=== PATIENT | female | born 1990 | race Caucasian/White ===

== ENCOUNTER → 2016-11-22 | Outpatient (REF) ==
[~2016-11-22] MED LIST: ABILIFY 10MG TA10 MG PO; ALBUTEROL0.83 MG/ML IH; AMBIEN 10MG10 MG PO; AMOXICILLIN 50500 MG PO; ARTANE 2MG2 MG PO; ATIVAN 0.50.5 MG/TAB PO; BACTRIM DS 8001 TAB PO; BIRTH CONTROL PILLS; BUSPAR10 MG PO; CEFTIN 250250 MG/TAB PO; CELEBREX50 MG PO; CELEXA10 MG PO; CEPHALEXIN500 M1 PO; CIPRO 500MG TA500 MG PO; CLARITIN 1010 MG/TAB PO; CLEOCIN HC150 MG/CAP PO; COLESTID 1GM1 G PO; DESYREL; DOXYCYCLINE 10100 MG PO; FLAGYL500 MG PO; FLEXERIL 1010 MG/TAB PO; FLOVENT 110MCG7.9 GM IH; FLOVENT 220MCG7.9 GM IH; FLOVENT DI50 MCG/Act IH; GENTAMICIN OPTHA3 GM OD; GEODON 40MG40 MG PO; GEODON60 MG PO; GEODON80 MG PO; GLUCOPHAGE500 MG/TAB PO; HALDOL 5MG T5 MG/TAB PO; IMITREX 25MG TA25 MG PO; INDERAL 10MG10 MG PO; IPRATROPIUM BROM3 M1 IH; KLONOPIN 0.5MG0.5 MG PO; LITHIUM 30300 MG/CAP PO; LORTAB 5/500 501 TAB PO; MELATONIN5 M1 SL; MINIPRESS 1M1 MG/CAP PO; MOTRIN 800800 MG/TAB PO; NAPROSYN500 MG PO; NO HOME MEDICATIONS; NORCO 325 MG-51 TAB PO; NORCO 325 MG-7.1 TAB PO; OMEGA 31000 MG PO; PERCOCET 325 MG1 TA2 PO; PHENERGAN 25 TA25 MG PO; PREDNISONE10 MG PO; PREDNISONE20 MG PO; PRILOSEC 20MG20 MG PO; PROAIR HFA0.09 MG/AC IH; PROVENTIL0.09 MG/A1 IH; PROZAC 20MG20 MG PO; PROZAC20 MG PO; PULMICORT0.5 MG/2 M PO; SEROQUEL 200MG200 MG PO; SEROQUEL300 MG PO; SEROQUEL400 MG PO; SKELAXIN 800MG800 MG PO; STADOL NASA25 MG/BOT NS; SYNTHROID0.05 MG/TA PO; SYNTHROID0.075 MG/T PO; TESSALON P100 MG/CAP PO; VALTREX 50500 MG/TAB PO; VIIBRYD20 MG PO; VITAMIN D2000 I1 PO; XANAX 0.5MG0.5 MG PO; ZITHROMAX 250M250 MG PO; ZITHROMAX Z PA250 MG PO; ZOCOR 40MG40 MG PO; ZOFRAN 4MG T4 MG/TAB PO; [UNRECOGNIZED DRUG - OTHER] OT
== END ==
LOC: ZLAB.WCH 10:41
DX: Z01.89 Encounter for other specified special examinations (principal)

== ENCOUNTER 2017-04-05 01:41 | Emergency (ER) | payer MEDICAID ==
[~2017-04-05] VITALS: Ht 162.6 cm; Wt 120.5 kg
[~2017-04-05 01:41] MED LIST changes: -CEPHALEXIN500 M1 PO; -GEODON 40MG40 MG PO
[2017-04-05 01:43] VITALS: BP 138/82; TEMP 98.4
[2017-04-05 02:04] LABS: BASO # 0.1 (0.0-0.2); BASO % 0.4 % (0.0-2.0); EOS # 0.3 (0.0-0.7); EOS % 2.2 % (0-4.0); GRAN # 8.3 (1.4-6.5); GRAN % 57.1 % (42.2-75.2); HEMATOCRIT 42.8 % (37.0-47.0); HEMOGLOBIN 14.5 g/dl (12.5-16.0); LYMPH % 34.1 % (20.0-51.0); MEAN CELL VOLUME 89 fl (80.0-100.0); MEAN CORPUSCULAR HEMOGLOBIN 30 pg (27.0-31.0); MEAN CORPUSCULAR HGB CONC 34 g/dl (33.0-37.0); MEAN PLATELET VOLUME 9.4 fl (7.4-10.4); MONO # 0.8 (0.1-0.6); MONO % 5.8 % (1.7-9.3); PLATELET COUNT 323 K/mm3 (130-400); RED BLOOD COUNT 4.79 M/mm3 (4.10-5.30); REDCELL DISTRIBUTION WIDTH-CV 12.7 % (11.5-14.5); WHITE BLOOD COUNT 14.5 K/mm3 (4.8-10.8)
[2017-04-05] MEDS ORDERED: CEPHALEXIN500 M1 PO (02:11)
[2017-04-05 02:13] LABS: ADJUSTED CALCIUM 9.2 mg/dL (8.4-10.2); ALANINE AMINOTRANSFERASE 37 U/L (9-52); ALBUMIN 4.1 gm/dL (3.5-5.0); ALKALINE PHOSPHATASE 95 U/L (50-136); ANION GAP 13 mmol/L (7-16); BILIRUBIN,TOTAL 0.4 mg/dL (0.0-1.0); BLOOD UREA NITROGEN 20 mg/dL (7-17); CALCIUM 9.3 mg/dL (8.4-10.2); CARBON DIOXIDE 22 mmol/L (22-30); CHLORIDE 105 mmol/L (98-107); CREATININE, serum 0.79 mg/dL (0.52-1.25); GLUCOSE 100 mg/dL (74-106); POTASSIUM 4.1 mmol/L (3.4-5.0); SODIUM 139 mmol/L (137-145); TOTAL PROTEIN 7.5 gm/dL (6.4-8.2)
[2017-04-05 02:15] LABS: AMPHETAMINE URINE NEGATIVE; BARBITURATES URINE NEGATIVE; BENZODIAZEPINES URINE NEGATIVE; BUPRENORPHINE URINE NEGATIVE; METHADONE URINE NEGATIVE; OPIATES URINE NEGATIVE; OXYCODONE URINE NEGATIVE; PHENCYCLIDINE URINE NEGATIVE; PROPOXYPHENE URINE NEGATIVE; THC CANNABINOIDS URINE NEGATIVE
[2017-04-05 02:18] LABS: ACETAMINOPHEN < 10 ug/mL (10-30); SALICYLATE < 1.0 mg/dL
[2017-04-05 02:27] LABS: PH 5 (5-8); URINE APPEARANCE Clear; URINE BACTERIA None Seen /hpf; URINE BILIRUBIN Negative (NEGATIVE); URINE BLOOD Negative (NEGATIVE); URINE COLOR Yellow; URINE GLUCOSE Negative (NEGATIVE); URINE KETONE Negative (NEGATIVE); URINE RBC 0-2 /hpf; URINE UROBILINOGEN Negative (NEGATIVE)
[2017-04-05 06:25] VITALS: PULSE 87
== END 2017-04-05 06:26 | disposition home or self-care (01) ==
LOC: COL.ER 01:41
PROVIDERS: Emergency Medicine; Nurse Practitioner
DX: R45.851 Suicidal ideations (principal); F20.9 Schizophrenia, unspecified; F32.9 Major depressive disorder, single episode, unspecified

== ENCOUNTER 2017-04-16 01:11 | Emergency (ER) | payer MEDICAID ==
[~2017-04-16] VITALS: Ht 162.6 cm; Wt 120.5 kg
[~2017-04-16 01:11] MED LIST changes: +CEPHALEXIN500 M1 PO
[2017-04-16 01:14] VITALS: TEMP 98.6
[2017-04-16] MEDS ORDERED: GEODON 40MG40 MG PO (01:17)
[2017-04-16 01:34] LABS: BASO # 0.1 (0.0-0.2); BASO % 0.4 % (0.0-2.0); EOS # 0.1 (0.0-0.7); EOS % 0.6 % (0-4.0); GRAN # 13.2 (1.4-6.5); GRAN % 75.3 % (42.2-75.2); HEMATOCRIT 43.2 % (37.0-47.0); HEMOGLOBIN 14.6 g/dl (12.5-16.0); LYMPH # 3.3 (1.2-3.4); LYMPH % 18.6 % (20.0-51.0); MEAN CELL VOLUME 88 fl (80.0-100.0); MEAN CORPUSCULAR HEMOGLOBIN 30 pg (27.0-31.0); MEAN CORPUSCULAR HGB CONC 34 g/dl (33.0-37.0); MONO # 0.8 (0.1-0.6); MONO % 4.7 % (1.7-9.3); PLATELET COUNT 342 K/mm3 (130-400); RED BLOOD COUNT 4.89 M/mm3 (4.10-5.30); REDCELL DISTRIBUTION WIDTH-CV 12.6 % (11.5-14.5); WHITE BLOOD COUNT 17.5 K/mm3 (4.8-10.8)
[2017-04-16 01:47] LABS: ADJUSTED CALCIUM 8.9 mg/dL (8.4-10.2); ALANINE AMINOTRANSFERASE 21 U/L (9-52); ALBUMIN 4.5 gm/dL (3.5-5.0); ALKALINE PHOSPHATASE 114 U/L (50-136); ANION GAP 12 mmol/L (7-16); BILIRUBIN,TOTAL 0.6 mg/dL (0.0-1.0); BLOOD UREA NITROGEN 16 mg/dL (7-17); CALCIUM 9.3 mg/dL (8.4-10.2); CARBON DIOXIDE 21 mmol/L (22-30); CHLORIDE 104 mmol/L (98-107); CREATININE, serum 0.67 mg/dL (0.52-1.25); GLUCOSE 105 mg/dL (74-106); POTASSIUM 3.6 mmol/L (3.4-5.0); SODIUM 136 mmol/L (137-145)
[2017-04-16 01:53] LABS: ACETAMINOPHEN < 10 ug/mL (10-30); SALICYLATE < 1.0 mg/dL
[2017-04-16 01:54] LABS: AMPHETAMINE URINE NEGATIVE; BARBITURATES URINE NEGATIVE; BENZODIAZEPINES URINE NEGATIVE; BUPRENORPHINE URINE NEGATIVE; METHADONE URINE NEGATIVE; OPIATES URINE NEGATIVE; OXYCODONE URINE NEGATIVE; PHENCYCLIDINE URINE NEGATIVE; PROPOXYPHENE URINE NEGATIVE; THC CANNABINOIDS URINE NEGATIVE
[2017-04-16 05:27] VITALS: BP 117/84; PULSE 94
== END 2017-04-16 04:37 | disposition home or self-care (01) ==
LOC: COL.ER 01:11
PROVIDERS: Physician Assistant
DX: F32.9 Major depressive disorder, single episode, unspecified (principal); R45.851 Suicidal ideations; F43.10 Post-traumatic stress disorder, unspecified

== ENCOUNTER 2017-05-26 20:07 | Emergency (ER) | payer MEDICAID ==
[~2017-05-26] VITALS: Ht 162.6 cm; Wt 118.2 kg
[~2017-05-26 20:07] MED LIST changes: +GEODON 40MG40 MG PO
[2017-05-26 20:19] VITALS: TEMP 97.2
[2017-05-26 21:49] LABS: HEMATOCRIT 41.9 % (37.0-47.0); HEMOGLOBIN 14.2 g/dl (12.5-16.0); MEAN CELL VOLUME 89 fl (80.0-100.0); MEAN CORPUSCULAR HEMOGLOBIN 30 pg (27.0-31.0); MEAN CORPUSCULAR HGB CONC 34 g/dl (33.0-37.0); MEAN PLATELET VOLUME 9.3 fl (7.4-10.4); PLATELET COUNT 306 K/mm3 (130-400); REDCELL DISTRIBUTION WIDTH-CV 12.6 % (11.5-14.5); WHITE BLOOD COUNT 13.9 K/mm3 (4.8-10.8)
[2017-05-26 21:53] LABS: PH 5 (5-8); SQUAMOUS EPITHELIAL 0-2 /hpf; URINE APPEARANCE Clear; URINE BACTERIA None Seen /hpf; URINE BILIRUBIN Negative (NEGATIVE); URINE BLOOD Negative (NEGATIVE); URINE COLOR Yellow; URINE GLUCOSE Negative (NEGATIVE); URINE KETONE Negative (NEGATIVE); URINE RBC 0-2 /hpf; URINE UROBILINOGEN Negative (NEGATIVE); URINE WBC 0-2 /hpf
[2017-05-26 22:07] LABS: ADJUSTED CALCIUM 10.5 mg/dL (8.4-10.2); ALANINE AMINOTRANSFERASE 20 U/L (9-52); ALBUMIN 4.1 gm/dL (3.5-5.0); ALKALINE PHOSPHATASE 85 U/L (50-136); ANION GAP 8 mmol/L (7-16); BILIRUBIN,TOTAL 0.4 mg/dL (0.0-1.0); BLOOD UREA NITROGEN 14 mg/dL (7-17); CALCIUM 10.6 mg/dL (8.4-10.2); CARBON DIOXIDE 27 mmol/L (22-30); CHLORIDE 102 mmol/L (98-107); CREATININE, serum 0.68 mg/dL (0.52-1.25); GLUCOSE 97 mg/dL (74-106); LIPASE 141 U/L (23-300); SODIUM 137 mmol/L (137-145); TOTAL PROTEIN 7.3 gm/dL (6.4-8.2)
[2017-05-26 22:26] LABS: C-REACTIVE PROTEIN < 0.5 mg/dL (0.0-0.9)
[2017-05-26 22:35] LABS: ADD PATHOLOGY DIFF REVIEW YES; BASOPHIL 1 % (0-2); EOSINOPHIL 3 % (0-4); NEUTROPHILS 53 % (42.0-75.2); PLATELET ESTIMATE NORMAL (NORMAL)
[2017-05-26 22:36] LABS: TOTAL CELLS COUNTED 100
[2017-05-26 22:51] VITALS: BP 133/78; PULSE 87
[2017-05-27 08:34] LABS: PATHOLOGY DIFF REVIEW OK
== END 2017-05-26 23:00 | disposition home or self-care (01) ==
LOC: COL.ER 20:07
PROVIDERS: Emergency Medicine
DX: R10.32 Left lower quadrant pain (principal); R11.10 Vomiting, unspecified; R19.7 Diarrhea, unspecified
CPT/HCPCS: J2405

== ENCOUNTER 2017-06-09 11:36 | Emergency (ER) | payer MEDICAID ==
[~2017-06-09] VITALS: Ht 162.6 cm; Wt 122.7 kg
[2017-06-09 11:43] VITALS: TEMP 98.5
[2017-06-09] MEDS ORDERED: LATUDA20 MG PO (11:55)
[2017-06-09] MEDS ORDERED: WELLBUTRIN XL300 M1 PO (11:55)
[2017-06-09] MEDS ORDERED: FLEXERIL 1010 MG/TAB PO (13:26)
[2017-06-09 13:28] VITALS: BP 18/71; PULSE 87
== END 2017-06-09 13:36 | disposition home or self-care (01) ==
LOC: COL.ER 11:36
DX: M54.5 Low back pain (principal); F43.10 Post-traumatic stress disorder, unspecified; F41.9 Anxiety disorder, unspecified; F25.9 Schizoaffective disorder, unspecified; F17.210 Nicotine dependence, cigarettes, uncomplicated; Z90.89 Acquired absence of other organs
CPT/HCPCS: J1885; J2360

== ENCOUNTER 2017-12-14 22:04 | Emergency (ER) | payer MEDICAID ==
[~2017-12-14] VITALS: Ht 162.6 cm; Wt 143.2 kg
[~2017-12-14 22:04] MED LIST changes: +LATUDA20 MG PO; +WELLBUTRIN XL300 M1 PO
[2017-12-14 22:07] VITALS: TEMP 97.7
[2017-12-14] MEDS ORDERED: KLONOPIN 0.5MG0.5 MG PO (22:19)
[2017-12-14] MEDS ORDERED: FANAPT2 MG PO (22:20)
[2017-12-14] MEDS ORDERED: NEB MC (23:44)
[2017-12-14] MEDS ORDERED: ALBUTEROL0.83 MG/ML IH (23:44)
[2017-12-14] MEDS ORDERED: PREDNISONE20 MG PO (23:44)
[2017-12-14 23:56] VITALS: BP 135/81; PULSE 98
== END 2017-12-14 23:56 | disposition home or self-care (01) ==
LOC: COL.ER 22:04
DX: J44.1 Chronic obstructive pulmonary disease with (acute) exacerbation (principal); F43.10 Post-traumatic stress disorder, unspecified; F41.9 Anxiety disorder, unspecified; G43.909 Migraine, unspecified, not intractable, without status migrainosus; F17.210 Nicotine dependence, cigarettes, uncomplicated; F20.9 Schizophrenia, unspecified
CPT/HCPCS: J7512